=== PATIENT | female | born 1985 | race Caucasian/White ===

== ENCOUNTER 2022-05-17 15:04 | Outpatient (CLI) | payer OTHER | END 2022-05-17 15:14 | disposition home or self-care (01) | LOC: RX STUDY 15:04 | PROVIDERS: ATTEND Surgery | DX: K64.2 Third degree hemorrhoids (principal); R19.5 Other fecal abnormalities; K59.04 Chronic idiopathic constipation ==

== ENCOUNTER 2022-09-15 09:49 | Outpatient (CLI) | payer OTHER ==
[2022-09-16] MEDS ORDERED: PEPCID AC20 MG PO (11:18)
[2022-09-16] MEDS ORDERED: PROTONIX40 M1 PO (11:18)
== END 2022-09-15 09:57 | disposition home or self-care (01) ==
LOC: RAD 09:49
PROVIDERS: ATTEND Surgery
DX: K64.2 Third degree hemorrhoids (principal); R19.5 Other fecal abnormalities; K59.04 Chronic idiopathic constipation

== ENCOUNTER 2022-09-16 09:30 | Inpatient (IN) | payer OTHER ==
[~2022-09-16] VITALS: Ht 165.1 cm; Wt 68.0 kg
[2022-09-16] MEDS ORDERED: PEPCID AC20 MG PO (11:18)
[2022-09-16] MEDS ORDERED: PROTONIX40 M1 PO (11:18)
[2022-09-22] MEDS ORDERED: PERCOCET 5-3251 EACH PO (08:06)
[2022-09-22] MEDS ORDERED: NEURONTIN300 MG PO (08:07)
[2022-09-22] MEDS ORDERED: KETO10TA2 PO (08:07)
[2022-09-22] MEDS ORDERED: DERMOPLAST PAIN78 GM TOP (08:07)
== END 2022-09-22 14:56 | disposition home or self-care (01) | DRG 331 ==
LOC: EDSTATUS 09:30 → ADM 09:30 → O/R 09-21 06:12 → SURH 09-21 06:12 → CIR.AMB 09-21 09:15 → EDSTATUS 09-21 09:30 → SURH 09-21 09:30
PROVIDERS: ADMIT Surgery; ATTEND Surgery
PROC: 06BY0ZC Excision of Hemorrhoidal Plexus, Open Approach (ICD-10-PCS; 2022-09-21)
PROC: 3E0T3BZ Introduction of Anesthetic Agent into Peripheral Nerves and Plexi, Percutaneous Approach (ICD-10-PCS; 2022-09-21)
PROC: 0JQC0ZZ Repair Pelvic Region Subcutaneous Tissue and Fascia, Open Approach (ICD-10-PCS; principal; 2022-09-21 09:15)
DX: K64.8 Other hemorrhoids (principal); N81.6 Rectocele; Z20.822 Contact with and (suspected) exposure to COVID-19